=== PATIENT | female | born 1965 | race Caucasian/White ===

== ENCOUNTER 2021-05-17 07:14 | Inpatient (IN) | payer OTHER ==
[~2021-05-17] VITALS: Ht 152.4 cm; Wt 95.3 kg
--- NOTE | 2021-05-17 07:27 | NUR ---
PATIENT [facility]IB[facility] 88 FROM [facility], C/O FEVER TACHY AMS. PATIENT IS A/O TO OPEN EYES. NO SOB NOTED. RR EVEN. RECTAL TEMP NOTED AT 104.3. PATIENT CONNECTED TO CARDIAC AND POX MONITOR.
--- NOTE | 2021-05-17 07:29 | NUR ---
ER AT BEDSIDE
[2021-05-17] MEDS ORDERED: ACETAMINOPHEN 650 MG/SUPP.RECT RC ONE ×2 (07:30→07:35)
[2021-05-17] MEDS ORDERED: IV NS 0.9% 1,000 ML BAG IV ONE (07:30)
[2021-05-17] MEDS ORDERED: ACETAMINOPHEN 120 MG/SUPP.RECT RC ONE (07:35)
--- NOTE | 2021-05-17 07:40 | NUR ---
IV LINE ESTABLISHED BLOOD DRAWN AND SENT TO LAB.
--- NOTE | 2021-05-17 07:46 | NUR ---
Murali salazar in [facility] - 05/17/21 at 0747 by ELISA MOVE SHEET SUBMITTED AND CALLED FOR TELE BED.
--- NOTE | 2021-05-17 07:47 | NUR ---
MOVE SHEET SUBMITTED AND CALLED FOR TELE BED.
--- NOTE | 2021-05-17 07:57 | NUR ---
URINE SPECIMEN COLLECTED AND SENT TO LAB.
[2021-05-17] MEDS ORDERED: LEVOFLOXACIN 750 MG /D5W 150ML 150 ML IV ONE ×2 (08:00→08:23)
[2021-05-17] MEDS ORDERED: FURO-145 PO (08:00)
[2021-05-17] MEDS ORDERED: ATOR10TA PO (08:00)
[2021-05-17] MEDS ORDERED: HYDR100T27 PO (08:00)
[2021-05-17] MEDS ORDERED: ALBU8.5H8 IH (08:00)
[2021-05-17] MEDS ORDERED: CLOT15CR5 TP (08:00)
[2021-05-17] MEDS ORDERED: INSU100V7 SQ (08:00)
[2021-05-17] MEDS ORDERED: METO25TA20 PO (08:00)
[2021-05-17] MEDS ORDERED: IPRA3AMP23 IH (08:00)
[2021-05-17] MEDS ORDERED: MULT-447 PO (08:00)
[2021-05-17] MEDS ORDERED: ASCO-352 PO (08:00)
[2021-05-17] MEDS ORDERED: ACET-868 PO (08:00)
[2021-05-17] MEDS ORDERED: ZINC1CAP3 PO (08:00)
[2021-05-17] MEDS ORDERED: PANT40TA2 PO (08:00)
[2021-05-17] MEDS ORDERED: INSU100V27 SQ (08:00)
[2021-05-17] MEDS ORDERED: ASPI-1420 PO (08:00)
[2021-05-17] MEDS ORDERED: POLY17PO4 PO (08:00)
[2021-05-17 08:19] LABS: HEMATOCRIT 48 % (33-45); HEMOGLOBIN 15.6 g/dL (11.5-14.8); MEAN CORPUSCULAR HGB CONC 32 g/dl (31.0-36.0); MEAN CORPUSCULAR VOLUME 85 fL (82-100); PLATELET COUNT (AUTO) 130 K/uL (150-450); RED BLOOD CELL COUNT(AUTO) 5.71 MIL/uL (4.0-5.2); WHITE BLOOD COUNT (AUTO) 4.2 K/uL (4.3-11.0)
[2021-05-17 08:31] LABS: ALANINE AMINOTRANSFERASE 61 U/L (12-78); ALBUMIN 2.8 g/dL (3.4-5.0); ALKALINE PHOSPHATASE 247 U/L (46-116); ASPARTATE AMINOTRANSFERASE 26 U/L (15-37); BILIRUBIN,DIRECT 0.9 mg/dL (0.0-0.2); BILIRUBIN,TOTAL 2.1 mg/dL (0.2-1.0); CALCIUM, SERUM 8.4 mg/dL (8.5-10.1); CARBON DIOXIDE 24 mmol/L (21-32); CHLORIDE 98 mmol/L (98-107); CREATININE 2.5 mg/dL (0.6-1.3); GLUCOSE 145 mg/dL (74-106); POTASSIUM 4.4 mmol/L (3.5-5.1); SODIUM SERUM 136 mmol/L (136-145); TOTAL PROTEIN, SERUM 6.6 g/dL (6.4-8.2); UREA NITROGEN, BLOOD 32 mg/dL (7-18)
--- NOTE | 2021-05-17 08:45 | NUR ---
COVID SPECIMEN COLLECTED AND SENT TO LAB.
[2021-05-17 08:57] LABS: BILIRUBIN,URINE NEGATIVE (NEGATIVE); COLOR,URINE YELLOW (YELLOW); LEUKOCYTE ESTERASE ,URINE MODERATE (NEGATIVE); NITRITE, URINE NEGATIVE (NEGATIVE); PH,URINE 6.5 (5.0-8.0); PROTEIN,URINE 100 mg/dl (NEGATIVE); UGLUCOSE NEGATIVE (NEGATIVE); UROBILINOGEN,URINE 0.2 EU/dL (0.2)
--- NOTE | 2021-05-17 09:45 | NUR ---
[facility] CALLED SENIOR DATA DEVELOPER PAGED.
--- NOTE | 2021-05-17 09:48 | NUR ---
HOSPITALIST SPEAKING WITH DR. RAM.
[2021-05-17] MEDS ORDERED: Z GUARD REMEDY 4 OZ OINT TP PRN (10:00)
[2021-05-17] MEDS ORDERED: ACETAMINOPHEN 325 MG TABLET PO PRN (10:00)
[2021-05-17] MEDS ORDERED: ONDANSETRON HCL/PF 4 MG/2 ML VIAL IVP PRN (10:00)
[2021-05-17] MEDS ORDERED: LABETALOL 20 MG/4 ML VIAL IV PRN (10:00)
[2021-05-17] MEDS ORDERED: DEXTROSE 50%-WATER 50 ML DISP.SYRIN IV PRN (10:00)
--- NOTE | 2021-05-17 10:01 | NUR ---
RN OPENING NOTES RECEIVED PATIENT ON BED , ALERT ORIENTED X 1, RESPIRATORY EVEN AND UNLABORED NO SOB NOTED. REMAIN AFEBRILE, ON NASAL CANULA @ 2LPM SATING AT 98%. PATIENT CURRENTLY ON NPO, NOTED WITH RIGHT HAND #18, INTACT, PATENT, FLUSHED WITH NS, NO INFILTRATION NOTED AT SITE. ALL SAFETY MEASURE PROVIDED. BED IN LOWEST POSITION, LOCKED. CONTINUE TO MONITOR.
[2021-05-17 11:10] LABS: BACTERIA,URINE Few /HPF (None Seen); WBC,URINE TOO NUMEROUS TO COUN /HPF (0-3)
[2021-05-17 11:11] LABS: SQUAMOUS EPITHELIAL CELL,UR None Seen /HPF (None Seen)
--- NOTE | 2021-05-17 11:28 | NUR ---
ROOM 112-1
--- NOTE | 2021-05-17 11:35 | NUR ---
REPORT GIVEN TO VEL RED FOR JUNIOR.
--- NOTE | 2021-05-17 11:45 | NUR ---
RN NOTES RECEIVED PATIENT FROM ER VIA RADHA, VITAL SIGNS ARE BP 146/93, HR 113, TEMP 99.4, O2 SAT 97%. PATIENT KEPT CLEAN AND DRY. ALL NEEDS ATTENDED TO AT THIS TIME. WILL CONTINUE TO MONITOR PATIENT.
[2021-05-17] MEDS: BLOOD SUGAR DIAGNOSTIC 1 EACH STRIP VI SCH ×3 (12:54→22:54)
[2021-05-17] MEDS: hydrALAZINE HCL 50 MG TABLET PO SCH ×2 (12:58→16:28)
[2021-05-17] MEDS ORDERED: ALBUTEROL SULFATE 8 GM HFA.AER.AD IH PRN (13:00)
[2021-05-17] MEDS ORDERED: IPRATROPIUM/ALBUTEROL INHALER IH PRN (13:00)
[2021-05-17] MEDS: MEROPENEM 500 MG in IV NS 0.9% 50 ML IV SCH (15:00)
--- NOTE | 2021-05-17 15:13 | NUR ---
MD ORDERS PATIENT PUT ON NPO DUE TO ALTERED LEVEL OF CONSCIOUSNESS. ACCORDING TO MD, NOTHING BY MOUTH EVEN MEDS UNTIL SHE PASSES SWALLOW EVAL BY SPEECH THERAPIST.
[2021-05-17 16:04] LABS: BAND % (MANUAL) 14 % (0.0-5.0); EOSINOPHILS % (MANUAL) 4 % (0-4); LYMPHOCYTES % (MANUAL) 3 % (16-48); MONOCYTES % (MANUAL) 3 % (0-11.0); NEUTROPHILS % (MANUAL) 76 (42-76)
[2021-05-17] MEDS: METOPROLOL TARTRATE 25 MG TABLET PO SCH (16:28)
[2021-05-17 17:03] VITALS: BP 146/93
--- NOTE | 2021-05-17 17:31 | NUR ---
RN NOTES PATIENT NPO. BLOOD GLUCOSE CHECK AT 1730 IS 114. WILL CONTINUE TO MONITOR PATIENT.
--- NOTE | 2021-05-17 18:22 | NUR ---
[facility] CLOSING NOTES PATIENT REMAINED STABLE THROUGHOUT THE SHIFT. PATIENT IS ASLEEP AND NO SIGNS OF PAIN OR RESPIRATORY DISTRESS. PATIENT TOLERATED 2L OF O2 SUPPLEMENTATION VIA NASAL CANNULA. VITAL SIGNS ARE RECORDED AFEBRILE AND WNL. PRESCRIBED ABX INFUSED AND NO SIGNS OF IV LEAKS OR INFILTRATION. PATIENT SAFETY MEASURES IN PLACE. BED IN LOWEST POSITION AND LOCKED. CALL LIGHT WITHIN REACH. WILL ENDORSE PATIENT TO NUCLEAR MEDICINE SPECIALIST NURSE FOR JUNIOR.
--- NOTE | 2021-05-17 19:10 | NUR ---
RN OPENING NOTES RECEIVED PATIENT ON BED , ALERT ORIENTED X 1, RESPIRATORY EVEN AND UNLABORED NO SOB NOTED. REMAIN AFEBRILE, ON NASAL CANULA @ 2 LPM SATING AT 98%. PATIENT CURRENTLY NPO, NOTED WITH RIGHT HAND IV LINE #18, INTACT, PATENT, FLUSHED WITH NS, NO INFILTRATION NOTED AT SITE. ALL SAFETY MEASURE PROVIDED. BED IN LOWEST POSITION, LOCKED. CONTINUE TO MONITOR.
[2021-05-17 20:00] VITALS: BP 137/87
[2021-05-17] MEDS: HEPARIN SODIUM, PORCINE 5000 UNITS/1 ML VIAL SQ SCH (21:43)
[2021-05-17] MEDS: ATORVASTATIN 10 MG TABLET PO SCH (22:00)
[2021-05-17] MEDS: INSULIN GLARGINE, 100 UNIT/ML CARTRIDGE SQ SCH (22:00)
--- NOTE | 2021-05-17 22:40 | NUR ---
RN NOTES NOTIFIED JOHN ROLDAN, REGARDING PATIENT IS CURRENTLY NPO, WITH HX OF DIABETES, LATEST BLOOD SUGAR IS 85 mg/dL, PATIENT HAS NO IV FLUID, PER JOHN ROLDAN NO NEW ORDER AT THIS TIME. CONTINUE TO MONITOR.
[2021-05-17] MEDS: *INSULIN REGULAR(HUMULIN R)HUM 100 UNIT/ML VIAL SQ PRN (22:55)
[2021-05-18] VITALS: BP 141/76
[2021-05-18] MEDS: MEROPENEM 500 MG in IV NS 0.9% 50 ML IV SCH ×2 (00:36→15:50)
[2021-05-18 04:00] VITALS: BP 143/91
[2021-05-18 07:13] LABS: BASOPHILS % (AUTO) 0.2 % (0.0-2.0); EOSINOPHILS % (AUTO) 1.1 % (0.0-6.0); HEMATOCRIT 42 % (33-45); HEMOGLOBIN 13.4 g/dL (11.5-14.8); LYMPHOCYTES % (AUTO) 9.5 % (20.0-44.0); MEAN CORPUSCULAR HGB CONC 32 g/dl (31.0-36.0); MEAN CORPUSCULAR VOLUME 85 fL (82-100); MONOCYTES # (AUTO) 0.7 K/uL (0.1-1.30); NEUTROPHILS # (AUTO) 8.3 K/uL (1.8-8.9); NEUTROPHILS % (AUTO) 82.2 % (43.0-81.0); PLATELET COUNT (AUTO) 104 K/uL (150-450); RED BLOOD CELL COUNT(AUTO) 4.98 MIL/uL (4.0-5.2); WHITE BLOOD COUNT (AUTO) 10.1 K/uL (4.3-11.0)
--- NOTE | 2021-05-18 07:23 | NUR ---
RN CLOSING NOTES NO SIGNIFICANT CHANGES THROUGH OUT THE SHIFT. RESPIRATORY EVEN AND UNLABORED NO SOB NOTED. REMAIN AFEBRILE, ON NASAL CANULA @ 2 LPM SATING AT 98%. PATIENT CURRENTLY NPO. ALL DUE MEDS GIVEN ORDERED. ALL SAFETY MEASURE PROVIDED. BED IN LOWEST POSITION, LOCKED. CONTINUE TO MONITOR.
[2021-05-18] MEDS: PANTOPRAZOLE 40 MG TABLET.DR PO SCH (07:30)
[2021-05-18 08:00] VITALS: BP 148/88
[2021-05-18 08:15] LABS: BILIRUBIN,TOTAL 1.1 mg/dL (0.2-1.0); CREATININE 1.9 mg/dL (0.6-1.3); MAGNESIUM 1.3 mg/dL (1.8-2.4); PHOSPHORUS 4.4 mg/dL (2.5-4.9); POTASSIUM 3.8 mmol/L (3.5-5.1)
[2021-05-18] MEDS: hydrALAZINE HCL 50 MG TABLET PO SCH ×4 (08:28→16:51)
[2021-05-18] MEDS: ASPIRIN EC 81 MG TABLET.DR PO SCH ×2 (08:28→09:04)
[2021-05-18] MEDS: FUROSEMIDE 20 MG TABLET PO SCH ×2 (08:29→09:03)
[2021-05-18] MEDS: METOPROLOL TARTRATE 25 MG TABLET PO SCH ×3 (08:29→16:52)
[2021-05-18] MEDS: MULTIVIT W/MINERALS 1 TAB TABLET PO SCH ×2 (08:29→09:06)
[2021-05-18] MEDS: ASCORBIC ACID 500 MG TABLET PO SCH ×2 (08:29→09:04)
[2021-05-18] MEDS: HEPARIN SODIUM, PORCINE 5000 UNITS/1 ML VIAL SQ SCH ×2 (08:30→22:00)
[2021-05-18] MEDS: BLOOD SUGAR DIAGNOSTIC 1 EACH STRIP VI SCH ×4 (08:30→21:58)
[2021-05-18] MEDS: POLYETHYLENE GLYCOL 3350 17 GM POWD.PACK PO SCH ×2 (08:31→09:06)
[2021-05-18] MEDS: CLOTRIMAZOLE/BETAMETASONE DIPROPIONATE 15 GM TUBE TP SCH (08:33)
--- NOTE | 2021-05-18 10:00 | NUR ---
RN NOTE PT PERIPHERAL IV NOT WORKING. PT HAS NO IV ACCESS. MIDLINE ORDERED
[2021-05-18] MEDS: Magnesium 1GM/D5W 100ML PREMIX 100 ML IV SCH ×3 (10:23→17:08)
[2021-05-18 12:00] VITALS: BP 162/95
[2021-05-18 16:00] VITALS: BP 148/93
[2021-05-18] MEDS ORDERED: Magnesium 1GM/D5W 100ML PREMIX 100 ML IV SCH (17:30)
--- NOTE | 2021-05-18 19:35 | NUR ---
RN NOTES RECEIVED PT FOR CONTINUITY OF CARE. PATIENT A/OX1 IN NO S/SX OF ACUTE DISTRESS AT THIS TIME; CURRENTLY ON 2L OF 02 VIA NC; WITH 02 SAT >95% AT THIS TIME. WILL ENSURE SAFETY MEASURES WITHIN THE SHIFT. PATIENT BED ALARM IS ON. HEAD OF BED ELEVATED. BED IS LOCKED, IN LOWEST POSITION AND SIDE RAILS UP. CALL LIGHT WITHIN REACH OF THE PATIENT. APPLICABLE ISOLATION PRECAUTIONS IN PLACE. WILL CONTINUE TO MONITOR AND REASSESS FOR ANY CHANGES AND WILL CARRY OUT ANY ONGOING AND ACTIVE MD ORDER.
[2021-05-18 20:00] VITALS: BP 135/79
[2021-05-18] MEDS: ATORVASTATIN 10 MG TABLET PO SCH (21:33)
[2021-05-18] MEDS: INSULIN GLARGINE, 100 UNIT/ML CARTRIDGE SQ SCH (21:57)
[2021-05-18] MEDS: *INSULIN REGULAR(HUMULIN R)HUM 100 UNIT/ML VIAL SQ PRN (22:00)
[2021-05-19] VITALS: BP 142/88
[2021-05-19] MEDS ORDERED: IV NS 0.9% 1,000 ML IV ONE
--- NOTE | 2021-05-19 | NUR ---
RN NOTES PATIENT REMAINED TO BE IN NO SIGNS OF ACUTE RESPIRATORY DISTRESS , VITAL SIGNS STABLE AT THIS TIME. REGULAR TURNING AND REPOSITIONING DONE Q2H AND SUCTIONING RENDERED. WILL CONTINUE TO MONITOR AND REASSESS FOR ANY CHANGES THROUGHOUT THE SHIFT.
[2021-05-19] MEDS: MEROPENEM 500 MG in IV NS 0.9% 50 ML IV SCH ×2 (00:07→12:50)
[2021-05-19 04:00] VITALS: BP 157/96
--- NOTE | 2021-05-19 06:33 | NUR ---
RN CLOSING NOTE: PATIENT REMAINS IN ROOM IN NO SIGNS OF RESPIRATORY DISTRESS, PATIENT STILL ON 2L OF 02 VIA NC ;TOLERATING WELL SATURATING @ >95% SP02. SAFETY MEASURES IMPLEMENTED, BED IN LOWEST POSITION, LOCKED, SIDE RAILS UP, CALL LIGHT WITHIN REACH. ALL NEEDS AND ORDERS ADDRESSED DURING THE SHIFT. IV ACCESS MAINTAINED INTACT, SECURED AND FLUSHING WELL. ALL DUE MEDS GIVEN ORDERED & SCHEDULED ; PATIENT TOLERATED WELL. PATIENT KEPT CLEAN AND COMFORTABLE WITHIN THE SHIFT. PATIENT ENDORSED TO INCOMING SHIFT RN WITH STABLE VITAL SIGN AND FOR CONTINUITY OF CARE.
[2021-05-19 08:00] VITALS: BP 171/83
--- NOTE | 2021-05-19 08:00 | NUR ---
RN OPENING NOTE PATIENT RECEIVED IN BED W/ NO SIGNS OF RESPIRATORY DISTRESS, PATIENT ON 2L OF 02 VIA NC ;TOLERATING WELL SATURATING @ 95% SP02. PATIENT HAS KATIE MIDLINE INTACT AND PATENT RUNNING NS @ 100ML/HR. PATIENT HAS SORIANO CATHETER INTACT AND PATENT DRAINING CLEAR YELLOW URINE. SAFETY MEASURES IMPLEMENTED, BED IN LOWEST POSITION, LOCKED, SIDE RAILS UP, CALL LIGHT WITHIN REACH. WILL CONTINUE TO MONITOR.
[2021-05-19] MEDS: POLYETHYLENE GLYCOL 3350 17 GM POWD.PACK PO SCH (08:28)
[2021-05-19] MEDS: PANTOPRAZOLE 40 MG TABLET.DR PO SCH (08:29)
[2021-05-19] MEDS: FUROSEMIDE 20 MG TABLET PO SCH (08:29)
[2021-05-19] MEDS: ASCORBIC ACID 500 MG TABLET PO SCH (08:29)
[2021-05-19] MEDS: ASPIRIN EC 81 MG TABLET.DR PO SCH (08:29)
[2021-05-19] MEDS: hydrALAZINE HCL 50 MG TABLET PO SCH ×3 (08:29→16:15)
[2021-05-19] MEDS: HEPARIN SODIUM, PORCINE 5000 UNITS/1 ML VIAL SQ SCH ×2 (08:32→20:43)
[2021-05-19] MEDS: METOPROLOL TARTRATE 25 MG TABLET PO SCH ×2 (08:34→16:15)
[2021-05-19] MEDS: MULTIVIT W/MINERALS 1 TAB TABLET PO SCH (08:34)
[2021-05-19] MEDS: BLOOD SUGAR DIAGNOSTIC 1 EACH STRIP VI SCH ×4 (08:47→21:54)
[2021-05-19] MEDS: CLOTRIMAZOLE/BETAMETASONE DIPROPIONATE 15 GM TUBE TP SCH (09:00)
[2021-05-19 09:58] LABS: BASOPHILS % (AUTO) 0.2 % (0.0-2.0); EOSINOPHILS % (AUTO) 4.5 % (0.0-6.0); HEMATOCRIT 40 % (33-45); HEMOGLOBIN 12.7 g/dL (11.5-14.8); LYMPHOCYTES # (AUTO) 0.9 K/uL (0.8-4.8); LYMPHOCYTES % (AUTO) 12.2 % (20.0-44.0); MEAN CORPUSCULAR HGB CONC 32 g/dl (31.0-36.0); MEAN CORPUSCULAR VOLUME 86 fL (82-100); MONOCYTES # (AUTO) 0.6 K/uL (0.1-1.30); NEUTROPHILS # (AUTO) 5.4 K/uL (1.8-8.9); NEUTROPHILS % (AUTO) 75.1 % (43.0-81.0); PLATELET COUNT (AUTO) 103 K/uL (150-450); RED BLOOD CELL COUNT(AUTO) 4.68 MIL/uL (4.0-5.2); WHITE BLOOD COUNT (AUTO) 7.2 K/uL (4.3-11.0)
[2021-05-19 10:13] LABS: ALBUMIN 2.2 g/dL (3.4-5.0); CALCIUM, SERUM 7.9 mg/dL (8.5-10.1); CREATININE 1.2 mg/dL (0.6-1.3); MAGNESIUM 1.5 mg/dL (1.8-2.4); POTASSIUM 3.5 mmol/L (3.5-5.1); TOTAL PROTEIN, SERUM 5.3 g/dL (6.4-8.2)
[2021-05-19] MEDS: AMLODIPINE BESYLATE 10 MG TABLET PO SCH (10:19)
[2021-05-19 12:00] VITALS: BP 146/95
[2021-05-19 12:25] LABS: EOSINOPHILS % (MANUAL) 4 % (0-4); LYMPHOCYTES % (MANUAL) 11 % (16-48); MONOCYTES % (MANUAL) 9 % (0-11.0); NEUTROPHILS % (MANUAL) 76 (42-76)
[2021-05-19 16:00] VITALS: BP 142/81
[2021-05-19] MEDS: ACETAMINOPHEN 325 MG TABLET PO PRN (16:15)
--- NOTE | 2021-05-19 18:34 | NUR ---
RN CLOSING NOTE PATIENT REMAINED STABLE THROUGHOUT SHIFT. NO SIGNS OF RESPIRATORY DISTRESS, PATIENT ON 2L OF 02 VIA NC ;TOLERATING WELL SATURATING @ 96% SP02. PATIENT HAS KATIE MIDLINE INTACT AND PATENT. PATIENT HAS SORIANO CATHETER INTACT AND PATENT DRAINING CLEAR YELLOW URINE. ALL NEEDS MET DURING SHIFT AND MEDS ADMINISTERED ORDERED DURING SHIFT. SAFETY MEASURES IMPLEMENTED, BED IN LOWEST POSITION, LOCKED, SIDE RAILS UP, CALL LIGHT WITHIN REACH. WILL ENDORSE TO SOFTWARE EDUCATOR RN.
[2021-05-19 20:00] VITALS: BP_SYST 134; BP_SYST 135; BP_DIAS 74; BP_DIAS 98
[2021-05-19] MEDS: MORPHINE SULFATE INJ 2 MG/ML DISP.SYRIN IV PRN (20:44)
[2021-05-19] MEDS: ATORVASTATIN 10 MG TABLET PO SCH (21:50)
[2021-05-19] MEDS: INSULIN GLARGINE, 100 UNIT/ML CARTRIDGE SQ SCH (21:52)
[2021-05-19] MEDS: *INSULIN REGULAR(HUMULIN R)HUM 100 UNIT/ML VIAL SQ PRN (21:54)
[2021-05-20] VITALS: BP 148/80
[2021-05-20] MEDS: MEROPENEM 500 MG in IV NS 0.9% 50 ML IV SCH ×2 (02:20→12:29)
[2021-05-20 04:00] VITALS: BP 143/60
[2021-05-20 06:45] LABS: BASOPHILS % (AUTO) 0.3 % (0.0-2.0); EOSINOPHILS % (AUTO) 5.7 % (0.0-6.0); HEMATOCRIT 43 % (33-45); HEMOGLOBIN 13.5 g/dL (11.5-14.8); LYMPHOCYTES # (AUTO) 1.3 K/uL (0.8-4.8); LYMPHOCYTES % (AUTO) 19.8 % (20.0-44.0); MEAN CORPUSCULAR HGB CONC 31 g/dl (31.0-36.0); MEAN CORPUSCULAR VOLUME 85 fL (82-100); MONOCYTES # (AUTO) 0.7 K/uL (0.1-1.30); MONOCYTES % (AUTO) 10.1 % (2.0-12.0); NEUTROPHILS # (AUTO) 4.2 K/uL (1.8-8.9); NEUTROPHILS % (AUTO) 64.1 % (43.0-81.0); PLATELET COUNT (AUTO) 122 K/uL (150-450); RED BLOOD CELL COUNT(AUTO) 5.07 MIL/uL (4.0-5.2); WHITE BLOOD COUNT (AUTO) 6.6 K/uL (4.3-11.0)
--- NOTE | 2021-05-20 06:45 | NUR ---
RN notes Resting comfortably in bed with no distress noted. Breathing even and unlabored. On 2lpm O2 via nasal cannula, tolerating well. Alert with confusion. Amharic speaking, barely able to understand or speak frisian. No physical manifestation of pain or discomfort. Vital signs wnl. No episode of synchope. Kept clean and dry. Will endorse to next shift for continuity of care.
[2021-05-20 07:07] LABS: CALCIUM, SERUM 7.7 mg/dL (8.5-10.1); CREATININE 0.9 mg/dL (0.6-1.3)
[2021-05-20 07:13] LABS: ALBUMIN 2.5 g/dL (3.4-5.0); BILIRUBIN,TOTAL 1.1 mg/dL (0.2-1.0); TOTAL PROTEIN, SERUM 5.8 g/dL (6.4-8.2)
--- NOTE | 2021-05-20 07:37 | NUR ---
RN OPENING NOTE PATIENT RECEIVED IN BED, RESTING. PATIENT ON 4L O2 NC WITH NO SIGNS OF LABORED BREATHING AT THIS TIME. SORIANO CATH IN PLACE, PATENT. LEFT UA MIDLINE AND RIGHT HAND SL IN PLACE. NO SIGNS OF ACUTE DISTRESS NOTED AT THIS TIME. BED LOCKED AND IN LOWEST POSITION, 2 SIDE RAILS UP, CALL LIGHT WITHIN REACH. WILL CONTINUE TO MONITOR.
[2021-05-20 08:00] VITALS: BP 140/82
[2021-05-20] MEDS: BLOOD SUGAR DIAGNOSTIC 1 EACH STRIP VI SCH ×4 (08:06→22:25)
[2021-05-20] MEDS: POLYETHYLENE GLYCOL 3350 17 GM POWD.PACK PO SCH (08:34)
[2021-05-20] MEDS: ASPIRIN EC 81 MG TABLET.DR PO SCH (08:35)
[2021-05-20] MEDS: PANTOPRAZOLE 40 MG TABLET.DR PO SCH (08:35)
[2021-05-20] MEDS: HEPARIN SODIUM, PORCINE 5000 UNITS/1 ML VIAL SQ SCH ×2 (08:35→22:10)
[2021-05-20] MEDS: AMLODIPINE BESYLATE 10 MG TABLET PO SCH (08:36)
[2021-05-20] MEDS: ASCORBIC ACID 500 MG TABLET PO SCH (08:36)
[2021-05-20] MEDS: hydrALAZINE HCL 50 MG TABLET PO SCH ×3 (08:36→16:21)
[2021-05-20] MEDS: METOPROLOL TARTRATE 25 MG TABLET PO SCH ×2 (08:36→16:21)
[2021-05-20] MEDS: MULTIVIT W/MINERALS 1 TAB TABLET PO SCH (08:36)
[2021-05-20] MEDS: FUROSEMIDE 20 MG TABLET PO SCH (08:36)
[2021-05-20] MEDS: CLOTRIMAZOLE/BETAMETASONE DIPROPIONATE 15 GM TUBE TP SCH (08:37)
[2021-05-20] MEDS: ACETAMINOPHEN 325 MG TABLET PO PRN (11:33)
[2021-05-20 12:00] VITALS: BP 144/78
[2021-05-20 16:00] VITALS: BP 146/89
--- NOTE | 2021-05-20 18:41 | NUR ---
RN CLOSING NOTE PATIENT REMAINS IN BED, RESTING. PATIENT ON 4L O2 NC WITH NO SIGNS OF LABORED BREATHING AT THIS TIME. SORIANO CATH IN PLACE, PATENT. LEFT UA MIDLINE AND RIGHT HAND SL IN PLACE. NO SIGNS OF ACUTE DISTRESS NOTED AT THIS TIME. ALL NEEDS ATTENDED DURING SHIFT. BED LOCKED AND IN LOWEST POSITION, 2 SIDE RAILS UP, CALL LIGHT WITHIN REACH. WILL ENDORSE TO BAFFLE MOUNTER NURSE.
--- NOTE | 2021-05-20 19:10 | NUR ---
RN NOTES RECEIVED REPORT FROM MORNING RN. PATIENT A/O X1-2 WITH PERIODS OF CONFUSIONS LUXEMBOURGER SPEAKING.NO SOB NO DISTRESS NOTED AT THIS TIME. WITH SORIANO CATHETER CONNECTED TO URINE BAG DRAINING YELLOWISH URINE OUTPUT. ALL SAFETY MEASURES IN PLACE. HOB ELEVATED. CALL LIGHT WITHIN REACH. BED ON LOWEST POSITION AND LOCKED. WILL CLOSELY MONITOR THE PATIENT.
[2021-05-20 20:00] VITALS: BP 130/49
[2021-05-20] MEDS: ATORVASTATIN 10 MG TABLET PO SCH (22:10)
[2021-05-20] MEDS: INSULIN GLARGINE, 100 UNIT/ML CARTRIDGE SQ SCH (22:25)
[2021-05-20] MEDS: *INSULIN REGULAR(HUMULIN R)HUM 100 UNIT/ML VIAL SQ PRN (22:29)
[2021-05-21] VITALS: BP 148/88
[2021-05-21] MEDS: MEROPENEM 500 MG in IV NS 0.9% 50 ML IV SCH ×2 (00:53→12:50)
[2021-05-21] MEDS: MORPHINE SULFATE INJ 2 MG/ML DISP.SYRIN IV PRN (01:13)
[2021-05-21 04:00] VITALS: BP 145/85
--- NOTE | 2021-05-21 06:40 | NUR ---
RN NOTES PATIENT REMAINS STABLE THE WHOLE SHIFT NO EPISODE OF DESATURATION NOTED. ALL DUE MEDS GIVEN ORDERED. ALL NEEDS ATTENDED PROMPTLY. KEPT CLEAN AND DRY AT ALL TIMES. ALL SAFETY MEASURES IN PLACE AT ALL TIMES. HOB ELEVATED. CALL LIGHT WITHIN REACH. BED ON LOWEST POSITION AND LOCKED. WILL ENDORSED TO NEXT SHIFT FOR JUNIOR
[2021-05-21 07:08] LABS: BASOPHILS % (AUTO) 0.2 % (0.0-2.0); EOSINOPHILS % (AUTO) 4.6 % (0.0-6.0); HEMATOCRIT 44 % (33-45); HEMOGLOBIN 13.8 g/dL (11.5-14.8); LYMPHOCYTES # (AUTO) 1.5 K/uL (0.8-4.8); LYMPHOCYTES % (AUTO) 22.3 % (20.0-44.0); MEAN CORPUSCULAR HGB CONC 32 g/dl (31.0-36.0); MEAN CORPUSCULAR VOLUME 84 fL (82-100); MONOCYTES # (AUTO) 0.7 K/uL (0.1-1.30); NEUTROPHILS # (AUTO) 4.3 K/uL (1.8-8.9); NEUTROPHILS % (AUTO) 62.9 % (43.0-81.0); PLATELET COUNT (AUTO) 136 K/uL (150-450); RED BLOOD CELL COUNT(AUTO) 5.18 MIL/uL (4.0-5.2); WHITE BLOOD COUNT (AUTO) 6.8 K/uL (4.3-11.0)
[2021-05-21 07:19] LABS: CALCIUM, SERUM 7.7 mg/dL (8.5-10.1); CREATININE 0.9 mg/dL (0.6-1.3); POTASSIUM 3.9 mmol/L (3.5-5.1)
[2021-05-21 07:25] LABS: ALBUMIN 2.6 g/dL (3.4-5.0); TOTAL PROTEIN, SERUM 5.8 g/dL (6.4-8.2)
--- NOTE | 2021-05-21 07:30 | NUR ---
RN OPENING NOTE PATIENT RECEIVED IN BED W/ NO SIGNS OF RESPIRATORY DISTRESS, PATIENT ON 2L OF 02 VIA NC ;TOLERATING WELL SATURATING @ 95% SP02. PATIENT HAS KATIE MIDLINE INTACT AND PATENT.. PATIENT HAS SORIANO CATHETER INTACT AND PATENT DRAINING CLEAR YELLOW URINE. SAFETY MEASURES IMPLEMENTED AND ACCOUNTED FOR, BED IN LOWEST POSITION, LOCKED, SIDE RAILS UP, CALL LIGHT WITHIN REACH. WILL CONTINUE TO MONITOR.
[2021-05-21 08:00] VITALS: BP 164/88
[2021-05-21] MEDS ORDERED: AMLO-213 PO (08:07)
[2021-05-21] MEDS: BLOOD SUGAR DIAGNOSTIC 1 EACH STRIP VI SCH ×4 (08:15→22:00)
[2021-05-21] MEDS: POLYETHYLENE GLYCOL 3350 17 GM POWD.PACK PO SCH (09:00)
[2021-05-21] MEDS: ASPIRIN EC 81 MG TABLET.DR PO SCH (09:00)
[2021-05-21] MEDS: FUROSEMIDE 20 MG TABLET PO SCH (09:01)
[2021-05-21] MEDS: AMLODIPINE BESYLATE 10 MG TABLET PO SCH (09:01)
[2021-05-21] MEDS: PANTOPRAZOLE 40 MG TABLET.DR PO SCH (09:01)
[2021-05-21] MEDS: ASCORBIC ACID 500 MG TABLET PO SCH (09:02)
[2021-05-21] MEDS: HEPARIN SODIUM, PORCINE 5000 UNITS/1 ML VIAL SQ SCH ×2 (09:02→21:14)
[2021-05-21] MEDS: hydrALAZINE HCL 50 MG TABLET PO SCH ×3 (09:02→17:12)
[2021-05-21] MEDS: MULTIVIT W/MINERALS 1 TAB TABLET PO SCH (09:15)
[2021-05-21] MEDS: METOPROLOL TARTRATE 25 MG TABLET PO SCH ×2 (09:15→17:13)
[2021-05-21] MEDS: CLOTRIMAZOLE/BETAMETASONE DIPROPIONATE 15 GM TUBE TP SCH (09:15)
[2021-05-21 12:00] VITALS: BP 130/84
[2021-05-21 13:15] LABS: BAND % (MANUAL) 1 % (0.0-5.0); EOSINOPHILS % (MANUAL) 5 % (0-4); LYMPHOCYTES % (MANUAL) 22 % (16-48); MONOCYTES % (MANUAL) 9 % (0-11.0); NEUTROPHILS % (MANUAL) 63 (42-76)
[2021-05-21 16:00] VITALS: BP 106/84
[2021-05-21] MEDS: INSULIN REGULAR, HUMAN 100 UNIT/ML 3 ML VIAL SQ PRN (17:31)
--- NOTE | 2021-05-21 18:42 | NUR ---
RN CLOSING NOTE PATIENT REMAINED STABLE THROUGHOUT SHIFT. PATIENT IN BED W/ NO SIGNS OF RESPIRATORY DISTRESS, PATIENT ON 2L OF 02 VIA NC ;TOLERATING WELL SATURATING @ 95% SP02. PATIENT HAS KATIE MIDLINE INTACT AND PATENT.. PATIENT HAS SORIANO CATHETER INTACT AND PATENT DRAINING CLEAR YELLOW URINE. ALL DUE MEDS ADMINISTERED ORDERED AND ALL PATIENT NEEDS MET. SAFETY MEASURES IMPLEMENTED AND ACCOUNTED FOR, BED IN LOWEST POSITION, LOCKED, SIDE RAILS UP, CALL LIGHT WITHIN REACH. WILL ENDORSE TO VOICE PATHOLOGIST RN.
--- NOTE | 2021-05-21 19:50 | NUR ---
RN CLOSING NOTE PATIENT IN BED W/ NO SIGNS OF RESPIRATORY DISTRESS, PATIENT ON 2L VIA NC ;TOLERATING WELL SATURATING @ 95% SP02. PATIENT HAS KATIE MIDLINE INTACT AND PATENTand FLUSHED. PATIENT HAS SORIANO CATHETER INTACT AND PATENT DRAINING CLEAR YELLOW URINE. SAFETY MEASURES IMPLEMENTED AND ACCOUNTED FOR, BED IN LOWEST POSITION, LOCKED, SIDE RAILS UP, CALL LIGHT WITHIN REACH. WILL CONTINUE WITH PLAN OF CARE. Addendum: 05/21/21 at 2051 by Anjali Eckert RN OPENING NOTES - NOT CLOSING Addendum: 05/22/21 at 0718 by Anjali Eckert RN RN OPENING NOTES
[2021-05-21 20:00] VITALS: BP 119/77
[2021-05-21] MEDS: ATORVASTATIN 10 MG TABLET PO SCH (21:13)
[2021-05-21] MEDS: ACETAMINOPHEN 325 MG TABLET PO PRN (21:13)
[2021-05-21] MEDS: INSULIN GLARGINE, 100 UNIT/ML CARTRIDGE SQ SCH (22:00)
--- NOTE | 2021-05-21 22:00 | NUR ---
RN NOTE PATIENT GLUCOSE WAS 90, PATIENT LOW APPETITE, DID NOT GIVEN INSULIN LANTUS, CHARGE NURSE NOTIFIED.
[2021-05-22] VITALS: BP 135/53
[2021-05-22] MEDS: MEROPENEM 500 MG in IV NS 0.9% 50 ML IV SCH ×2 (00:46→12:03)
[2021-05-22 04:00] VITALS: BP 136/85
[2021-05-22 06:25] LABS: BASOPHILS % (AUTO) 0.4 % (0.0-2.0); EOSINOPHILS % (AUTO) 4.8 % (0.0-6.0); HEMATOCRIT 46 % (33-45); HEMOGLOBIN 14.8 g/dL (11.5-14.8); LYMPHOCYTES # (AUTO) 1.9 K/uL (0.8-4.8); LYMPHOCYTES % (AUTO) 22.5 % (20.0-44.0); MEAN CORPUSCULAR HGB CONC 32 g/dl (31.0-36.0); MEAN CORPUSCULAR VOLUME 85 fL (82-100); MONOCYTES # (AUTO) 0.8 K/uL (0.1-1.30); MONOCYTES % (AUTO) 9.3 % (2.0-12.0); NEUTROPHILS # (AUTO) 5.2 K/uL (1.8-8.9); PLATELET COUNT (AUTO) 134 K/uL (150-450); WHITE BLOOD COUNT (AUTO) 8.2 K/uL (4.3-11.0)
[2021-05-22 06:34] LABS: CREATININE 0.9 mg/dL (0.6-1.3); POTASSIUM 4.5 mmol/L (3.5-5.1)
[2021-05-22 06:37] LABS: ALBUMIN 2.6 g/dL (3.4-5.0); BILIRUBIN,TOTAL 1.1 mg/dL (0.2-1.0); TOTAL PROTEIN, SERUM 6.1 g/dL (6.4-8.2)
--- NOTE | 2021-05-22 07:19 | NUR ---
RN CLOSING NOTES PATIENT IN BED RESTING, NO CHANGES THROUGHOUT THE NIGHT. WILL ENDORSE PLAN OF CARE TO AM NURSE.
--- NOTE | 2021-05-22 07:20 | NUR ---
RN OPENING NOTES RECEIVED PATIENT IN BED, AWAKE, VERBALLY RESPONSIVE. NO SIGNS OF ACUTE DISTRESS NOTED. ON O2 @ 4LPM VIA N/C SPO2 @ 98 %, NO SOB NOTED, BREATHING EVEN AND UNLABORED. DENIES ANY PAIN OR DISCOMFORT AT THIS TIME. WITH IV ACCESS ON KATIE MIDLINE AND RIGHT HAND, INTACT AND PATENT. ON TELE MONITOR CURRENTLY SHOWING SR @ 92. F/C INTACT AND PATENT, DRAINING CLEAR YELLOW URINE. SAFETY MEASURES MAINTAINED. BED LOCKED AND IN LOWEST POSITION, SR UP, CALL LIGHT PLACED WITHIN EASY REACH. WILL CONTINUE TO MONITOR.
[2021-05-22] MEDS: BLOOD SUGAR DIAGNOSTIC 1 EACH STRIP VI SCH ×2 (07:45→11:25)
[2021-05-22] MEDS: INSULIN REGULAR, HUMAN 100 UNIT/ML 3 ML VIAL SQ PRN ×2 (07:46→11:34)
[2021-05-22 08:00] VITALS: BP 147/95
[2021-05-22] MEDS: PANTOPRAZOLE 40 MG TABLET.DR PO SCH (08:04)
[2021-05-22] MEDS: METOPROLOL TARTRATE 25 MG TABLET PO SCH (08:24)
[2021-05-22] MEDS: AMLODIPINE BESYLATE 10 MG TABLET PO SCH (08:24)
[2021-05-22] MEDS: FUROSEMIDE 20 MG TABLET PO SCH (08:25)
[2021-05-22] MEDS: POLYETHYLENE GLYCOL 3350 17 GM POWD.PACK PO SCH (08:25)
[2021-05-22] MEDS: ASCORBIC ACID 500 MG TABLET PO SCH (08:25)
[2021-05-22] MEDS: ASPIRIN EC 81 MG TABLET.DR PO SCH (08:25)
[2021-05-22] MEDS: hydrALAZINE HCL 50 MG TABLET PO SCH ×2 (08:25→12:03)
[2021-05-22] MEDS: MULTIVIT W/MINERALS 1 TAB TABLET PO SCH (08:25)
[2021-05-22] MEDS: HEPARIN SODIUM, PORCINE 5000 UNITS/1 ML VIAL SQ SCH (08:28)
[2021-05-22] MEDS: CLOTRIMAZOLE/BETAMETASONE DIPROPIONATE 15 GM TUBE TP SCH (09:21)
[2021-05-22 10:30] LABS: BAND % (MANUAL) 3 % (0.0-5.0); EOSINOPHILS % (MANUAL) 4 % (0-4); LYMPHOCYTES % (MANUAL) 21 % (16-48); MONOCYTES % (MANUAL) 6 % (0-11.0); MYELOCYTES % 1 % (0-0); NEUTROPHILS % (MANUAL) 63 (42-76); REACTIVE LYMPHOCYTES 2 % (0-0)
[2021-05-22 12:00] VITALS: BP 108/67
[2021-05-22 12:03] VITALS: BP 108/67
--- NOTE | 2021-05-22 14:45 | NUR ---
RN NOTES [facility] [place], IN ST[facility] CONDITION. VITAL SIGNS TAKEN, STABLE AND RECORDED. IV ACCESS ON RIGHT HAND REMOVED, NO BLEEDING NOTED. KATIE MIDLINE KEPT FOR CONTINUATION OF IV ABX, INTACT AND PATENT, NO S/SX OF INFECTION/INFILTRATION. PATIENT DOESN'T HAVE ANY BELONGINGS ON ADMISSION. TELE MONITOR REMOVED. BODY ASSESSMENT DONE, SKIN GENERALLY INTACT. REPORT GIVEN TO TIFFANI Stanley RN FROM [facility]. PATIENT'S DAUGHTER HENNY ALSO AWARE OF PATIENTS TRANSFER. PATIENT PICKED UP @ 1445 BY [facility]. CN AWARE OF DISCHARGE.
== END 2021-05-22 15:03 | DRG 720 ==
LOC: ER 07:32 → TRANSITION 10:48 → TELE1 11:45
PROVIDERS: ADMIT Internal Medicine; ATTEND Internal Medicine
PROC: 05H633Z Insertion of Infusion Device into Left Subclavian Vein, Percutaneous Approach (ICD-10-PCS; principal; 2021-05-18)
PROC: B547ZZA Ultrasonography of Left Subclavian Vein, Guidance (ICD-10-PCS; 2021-05-18)
DX: A41.52 Sepsis due to Pseudomonas (principal); N17.0 Acute kidney failure with tubular necrosis; J96.91 Respiratory failure, unspecified with hypoxia; G93.41 Metabolic encephalopathy; E78.5 Hyperlipidemia, unspecified; N39.0 Urinary tract infection, site not specified; F03.90 Unspecified dementia, unspecified severity, without behavioral disturbance, psychotic disturbance, mood disturbance, and anxiety; Z79.4 Long term (current) use of insulin; Z20.822 Contact with and (suspected) exposure to COVID-19; N18.9 Chronic kidney disease, unspecified; I12.9 Hypertensive chronic kidney disease with stage 1 through stage 4 chronic kidney disease, or unspecified chronic kidney disease; J98.11 Atelectasis; E11.22 Type 2 diabetes mellitus with diabetic chronic kidney disease; E66.9 Obesity, unspecified; Z68.41 Body mass index [BMI] 40.0-44.9, adult
CPT/HCPCS: 36415; 71045-TC; 80048-TC; 80053-TC; 80076-TC; 81001; 82962-TC; 83605-TC; 83735-TC; 84100-TC; 84484-TC; 85025-TC; 85730-TC; 87040-TC; 87081-TC; 87086-TC; 87186-TC; 92526; 92611-TC; C9803; G0378; J1644; J1815; J1956; J2185; J2270; J3475; J7030; J7050; U0003

== ENCOUNTER 2021-12-26 22:18 | Emergency (ER) | payer OTHER ==
[~2021-12-26] VITALS: Ht 165.1 cm; Wt 87.1 kg
[~2021-12-26 22:18] MED LIST: ACET-868 PO; ALBU8.5H8 IH; AMLO-213 PO; ASCO-352 PO; ASPI-1420 PO; ATOR10TA PO; CLOT15CR5 TP; FURO-145 PO; HYDR100T27 PO; INSU100V27 SQ; INSU100V7 SQ; IPRA3AMP23 IH; METO25TA20 PO; MULT-447 PO; PANT40TA2 PO; POLY17PO4 PO
--- NOTE | 2021-12-26 23:15 | NUR ---
TO ER BED 7. BIBRA 89 FROM HOME C/O CP RADIATING TO R BREAST X FEW DAYS. PT STATES SHE "TOOK HUSBANDS NORCO ". CONCERNED ABOUT LOW HEART RATE. PT IS ALERT AND ORIENTED. RR EVEN AND NON LABORED. CONNECTED TO MONITOR
[2021-12-26] MEDS ORDERED: ASPIRIN 325 MG TABLET PO ONE (23:30)
--- NOTE | 2021-12-26 23:50 | NUR ---
LAB AT BESIDE
--- NOTE | 2021-12-26 23:54 | NUR ---
COVID SWAB COLLECTED AND SENT TO LAB
--- NOTE | 2021-12-26 23:58 | NUR ---
SENIOR ANDROID DEVELOPER AT PT'S BEDSIDE
[2021-12-27] MEDS ORDERED: ASPIRIN 325 MG TABLET ONE (00:09)
[2021-12-27 00:15] LABS: CALCIUM, SERUM 8.8 mg/dL (8.5-10.1); CARBON DIOXIDE 34 mmol/L (21-32); CHLORIDE 105 mmol/L (98-107); CREATININE 1.6 mg/dL (0.6-1.3); GLUCOSE 127 mg/dL (74-106); POTASSIUM 5.3 mmol/L (3.5-5.1); SODIUM SERUM 142 mmol/L (136-145); UREA NITROGEN, BLOOD 53 mg/dL (7-18)
[2021-12-27 00:17] LABS: BASOPHILS % (AUTO) 0.2 % (0.0-2.0); EOSINOPHILS % (AUTO) 3.1 % (0.0-6.0); HEMATOCRIT 46 % (33-45); HEMOGLOBIN 14.9 g/dL (11.5-14.8); LYMPHOCYTES # (AUTO) 1.4 K/uL (0.8-4.8); LYMPHOCYTES % (AUTO) 21.9 % (20.0-44.0); MEAN CORPUSCULAR HGB CONC 32 g/dl (31.0-36.0); MEAN CORPUSCULAR VOLUME 89 fL (82-100); MONOCYTES # (AUTO) 0.4 K/uL (0.1-1.30); MONOCYTES % (AUTO) 6.4 % (2.0-12.0); NEUTROPHILS # (AUTO) 4.3 K/uL (1.8-8.9); NEUTROPHILS % (AUTO) 68.4 % (43.0-81.0); PLATELET COUNT (AUTO) 168 K/uL (150-450); RED BLOOD CELL COUNT(AUTO) 5.17 MIL/uL (4.0-5.2); WHITE BLOOD COUNT (AUTO) 6.3 K/uL (4.3-11.0)
[2021-12-27 00:28] LABS: ALANINE AMINOTRANSFERASE 18 U/L (12-78); ALBUMIN 3.8 g/dL (3.4-5.0); ALKALINE PHOSPHATASE 91 U/L (46-116); ASPARTATE AMINOTRANSFERASE 19 U/L (15-37); BILIRUBIN,DIRECT 0.1 mg/dL (0.0-0.2); BILIRUBIN,TOTAL 0.5 mg/dL (0.2-1.0)
--- NOTE | 2021-12-27 03:06 | NUR ---
IV removed. Catheter intact and site benign. Pressure and 4x4 applied to site. No bleeding noted.
--- NOTE | 2021-12-27 03:07 | NUR ---
Patient discharged to home in stable condition. Written and verbal after care instructions given. Patient verbalizes understanding of instruction.
[2021-12-27 03:11] VITALS: BP 161/74
== END 2021-12-27 03:11 | disposition home or self-care (01) ==
LOC: ER 22:19
DX: R07.9 Chest pain, unspecified (principal); Z20.822 Contact with and (suspected) exposure to COVID-19; I10 Essential (primary) hypertension; Z88.0 Allergy status to penicillin; Z79.82 Long term (current) use of aspirin; R94.31 Abnormal electrocardiogram [ECG] [EKG]
CPT/HCPCS: 99285; 71045; 87426; 93005; 85025; 80048; 80076; 36415 ×2; 84484 ×2; 85730; 83880; C9803